=== PATIENT | female | born 1995 | race African-American/Black ===

== ENCOUNTER 2017-08-10 17:56 | Inpatient (IN) | payer MEDICAID ==
[~2017-08-10 17:56] MED LIST: BACT800T5 PO; DOXY100C PO; METR-1 PO
[2017-08-10] MEDS ORDERED: DINOPROSTONE 10 MG INSERT-LEAVE FOR 12 HOURS VAGINAL ONE (19:30)
[2017-08-10 19:37] LABS: AUTOMATED NEUTROPHIL # 6.5 TH/MM3 (1.8-7.7); BASOPHIL # 0.1 TH/MM3 (0-0.2); BASOPHIL % 0.8 % (0.0-2.0); EOSINOPHIL # 0.1 TH/MM3 (0-0.4); HEMATOCRIT 27.7 % (35.0-46.0); HEMOGLOBIN 9.6 GM/DL (11.6-15.3); LYMPH % 15.8 % (9.0-44.0); LYMPHOCYTE # 1.3 TH/MM3 (1.0-4.8); MEAN CELL VOLUME 85.5 FL (80.0-100.0); MEAN CORPUSCULAR HEMOGLOBIN 29.7 PG (27.0-34.0); MEAN CORPUSCULAR HGB CONC 34.7 % (32.0-36.0); MEAN PLATELET VOLUME 8.8 FL (7.0-11.0); MONO % 6.2 % (0.0-8.0); MONOCYTE # 0.5 TH/MM3 (0-0.9); NEUT % 76.2 % (16.0-70.0); PLATELET COUNT 232 TH/MM3 (150-450); RED BLOOD COUNT 3.24 MIL/MM3 (4.00-5.30); RED CELL DISTRIBUTION WIDTH 13.2 % (11.6-17.2); WHITE BLOOD COUNT 8.5 TH/MM3 (4.0-11.0)
[2017-08-10 20:04] LABS: BACTERIA, URINE RARE /hpf; BILIRUBIN, URINE NEG (NEG); BLOOD, URINE NEG (NEG); GLUCOSE,URINE NEG (NEG); KETONE, URINE NEG (NEG); MUCUS URINE FEW /lpf (OCC); NITRITE,URINE NEG (NEG); PH, URINE 6.5 (5.0-8.5); SQUAMOUS EPITHELIAL CELL URINE <1 /hpf (0-5); URINE COLOR LIGHT-YELLOW (YELLW/STRAW); URINE LEUKOCYTE ESTERASE NEG (NEG)
[2017-08-10] MEDS: LACTATED RINGER'S 1000 ML INJ 1,000 ML IV SCH (20:04)
[2017-08-11] VITALS (67 sets, daily range): BP systolic 89–129; BP diastolic 45–88; PULSE 66–134; RESP 18–20; TEMP 98–98.7; O2SAT 100
[2017-08-11] MEDS ORDERED: NS 500 ML BOLUS IV PRN (01:45)
[2017-08-11] MEDS ORDERED: CITRIC ACID-SODIUM CITRATE LIQ 30 ML UDC PO SCH (01:45)
[2017-08-11] MEDS ORDERED: LIDOCAINE HCL 1% 50 ML VIAL INFIL PRN (01:45)
[2017-08-11] MEDS ORDERED: OXYTOCIN 30 UNITS 500ML PREMIX IV ONE (01:45)
[2017-08-11] MEDS ORDERED: LACTATED RINGER'S 1000 ML BOLUS IV PRN (01:45)
[2017-08-11] MEDS ORDERED: NS 1000 ML IV PRN (01:45)
[2017-08-11] MEDS ORDERED: MINERAL OIL 10 ML VIAL TOPICAL PRN (01:45)
[2017-08-11] MEDS ORDERED: LIDOCAINE HCL 1% 50 ML VIAL I-DERMAL PRN (01:45)
[2017-08-11] MEDS ORDERED: ONDANSETRON HCL 4 MG/2 ML VIAL IV PUSH PRN (01:45)
--- NOTE | 2017-08-11 02:53 | HHI.HP ---
HPI Chief Complaint iugr iol Travel History International Travel<30 Days: No Contact w/Intl Traveler<30Days: No Known Affected Area: No History of Present Illness HPI 21 yo G1 with iup at 39w2d by first trimester u/s c/w lmp, being admitted for iol for iugr. c/b hyperemesis and poor weight gain. Sono at 35 weeks noted EFW 21 %ile. Sono yesterday noted EFW 7% with AC and HC under 1 percent (5 lb 13oz). Normal dopplers, ANEESH 7; G3 placenta. She reports good FM, neg ctx, vb, lof. Weeks Gestation: 39 Para: 0 : 1 History Past Medical History Medical History: Denies Significant Hx Past Surgical History Surgical History: No Previous Surgery Family History Family History: Negative Social History Alcohol Use: No Tobacco Use: No Substance Abuse: No Allergies-Medications (Allergen,Severity, Reaction): Coded Allergies: No Known Allergies (Verified Allergy, Unknown, 08/11/17) Home Meds Discontinued Scripts Sulfamethoxazole-Trimethoprim (Bactrim DS) 800-160 Mg Tab, 1 TAB PO BID for Infection, #6 TAB 0 Refills Prov:Kam Arvizu MD 04/18/16 Metronidazole (Flagyl) 500 Mg Tab, 500 MG PO BID for Infection for 10 Days, TAB 0 Refills Prov:Kam Arvizu MD 04/18/16 Doxycycline Hyclate (Doxycycline Hyclate) 100 Mg Cap, 100 MG PO BID for Infection for 10 Days, CAP 0 Refills Prov:Kam Arvizu MD 04/18/16 Review of Systems General / Constitutional: No: Fever, Weight Gain, Chills, Other Eyes: No: Diploplia, Blurred Vision, Visual changes, Pain, Photophobia HENT: No: Headaches, Vertigo, Lightheadedness Cardiovascular: No: Irregular Rhythm, Chest Pain or Discomfort, Palpitations, Tachycardia, Syncope, Varicosities, Edema, Cyanosis Respiratory: No: Cough, Short of Breath, Other Gastrointestinal: No: Nausea, Vomiting, Diarrhea Genitourinary: No: Decreased Urinary Output, Oliguria Musculoskeletal: No: Limited ROM, Weakness, Cramping, Edema, Pain Skin: No Rash, No Itching, No Dryness, No Lumps, No Change in Pigmentation, No Change in Nails, No Alopecia, No Lesions Neurologic: No: Weakness, Dizziness, Syncope, Focal Abnormalities, Coordination Problem, Headache, Slurred Speech, Seizures Psychiatric: No: Depression, Suicidal Ideations, Homicidal Ideation Endocrine: No: Heat Intolerance, Cold Intolerance, Polydipsia, Polyuria, Other Physical Exam Narrative GENERAL: Well-nourished, well-developed patient. SKIN: Warm and dry. HEAD: Normocephalic and atraumatic. EYES: No scleral icterus. No injection or drainage. ENT: No nasal drainage noted. Mucous membranes pink. Airway patent. NECK: Supple, trachea midline. No JVD. CARDIOVASCULAR: Regular rate and rhythm without murmurs, gallops, or rubs. RESPIRATORY: Breath sounds equal bilaterally. No accessory muscle use. ABDOMEN/GI: Abdomen soft, non-tender, bowel sounds present, no rebound, no guarding Gravid to 36 weeks size GENITOURINARY: External Genitalia: intact and normal in appearance Cervix:cl/th/hi Presentation ceph Membranes: [intact Uterine Contractions: [-] FHT's: Category: I Baseline: [140] Reactive: [-] Variability: mod] Decels: [-] EXTREMITIES: No cyanosis or edema. BACK: Nontender without obvious deformity. No CVA tenderness. NEUROLOGICAL: Awake and alert. Motor and sensory grossly within normal limits. Five out of 5 muscle strength in all muscle groups. Normal speech. Caprini VTE Risk Assessment Caprini VTE Risk Assessment: No/Low Risk (score <= 1) Caprini Risk Assessment Model Point Value = 1 Point Value = 2 Point Value = 3 Point Value = 5 Age 41-60 Minor surgery BMI > 25 kg/m2 Swollen legs Varicose veins or History of unexplained or recurrent spontaneous Oral contraceptives or hormone replacement Sepsis (< 1 month) Serious lung disease, including pneumonia (< 1 month) Abnormal pulmonary function Acute myocardial infarction Congestive heart failure (< 1 month) History of inflammatory bowel disease Medical patient at bed rest Age 61-74 Arthroscopic surgery Major open surgery (> 45 min) Laparoscopic surgery (> 45 min) Malignancy Confined to bed (> 72 hours) Immobilizing plaster cast Central venous access Age >= 75 History of VTE Family history of VTE Factor V Leiden Prothrombin [id number] Lupus anticoagulant Anticardiolipin antibodies Elevated serum homocysteine Heparin-induced thrombocytopenia Other congenital or acquired thrombophilia Stroke (< 1 month) Elective arthroplasty Hip, pelvis, or leg fracture Acute spinal cord injury (< 1 month) Prophylaxis Regimen Total Risk Factor Score Risk Level Prophylaxis Regimen 0-1 Low Early ambulation 2 Moderate Order ONE of the following: *Sequential Compression Device (SCD) *Heparin 5000 units SQ BID 3-4 Higher Order ONE of the following medications: *Heparin 5000 units SQ TID *Enoxaparin/Lovenox 40 mg SQ daily (WT < 150 kg, CrCl > 30 mL/min) *Enoxaparin/Lovenox 30 mg SQ daily (WT < 150 kg, CrCl > 10-29 mL/min) *Enoxaparin/Lovenox 30 mg SQ BID (WT < 150 kg, CrCl > 30 mL/min) AND/OR *Sequential Compression Device (SCD) 5 or more Highest Order ONE of the following medications: *Heparin 5000 units SQ TID (Preferred with Epidurals) *Enoxaparin/Lovenox 40 mg SQ daily (WT < 150 kg, CrCl > 30 mL/min) *Enoxaparin/Lovenox 30 mg SQ daily (WT < 150 kg, CrCl > 10-29 mL/min) *Enoxaparin/Lovenox 30 mg SQ BID (WT < 150 kg, CrCl > 30 mL/min) AND *Sequential Compression Device (SCD) Data Data Vital Signs Reviewed: Yes Orders Orders Dinoprostone Vag Insert (Cervidil Vag In (08/10/17 19:30) Lactated Ringer's 1000 Ml Inj (Lr 1000 M (08/10/17 19:30) Complete Blood Count With Diff (08/10/17 19:16) Hold Clot (08/10/17 19:16) Abo/Rh Blood Type (08/10/17 19:16) Urinalysis - C+S If Indicated (08/10/17 19:16) Specimen To Be Collected PRN (08/10/17 19:16) Ob/Psych Drug Screen, Urine (08/10/17 19:16) Lactated Ringer's 1000 Ml Inj (Lr 1000 M (08/11/17 01:45) Sodium Chlorid 0.9% 500 Ml Inj (Ns 500 M (08/11/17 01:45) Lactated Ringer's 1000 Ml Inj (Lr 1000 M (08/11/17 01:45) Sodium Chlor 0.9% 1000 Ml Inj (Ns 1000 M (08/11/17 01:45) Lidocaine 1% Inj (50 Ml) (Xylocaine 1% I (08/11/17 01:45) Citric Acid-Sodium Citrate Liq (Bicitra (08/11/17 01:45) Ondansetron Inj (Zofran Inj) (08/11/17 01:45) Fentanyl Inj (Fentanyl Inj) (08/11/17 01:45) Fentanyl Inj (Fentanyl Inj) (08/11/17 01:45) Oxytocin 30 Units-500ml Premix (Pitocin (08/11/17 01:45) Lidocaine 1% Inj (50 Ml) (Xylocaine 1% I (08/11/17 01:45) Light Mineral Oil (Muri-Lube Oil) (08/11/17 01:45) Group B Strep: Negative Labs Laboratory Tests Test 08/10/17 18:35 White Blood Count 8.5 Red Blood Count 3.24 Hemoglobin 9.6 Hematocrit 27.7 Mean Corpuscular Volume 85.5 Mean Corpuscular Hemoglobin 29.7 Mean Corpuscular Hemoglobin Concent 34.7 Red Cell Distribution Width 13.2 Platelet Count 232 Mean Platelet Volume 8.8 Neutrophils (%) (Auto) 76.2 Lymphocytes (%) (Auto) 15.8 Monocytes (%) (Auto) 6.2 Eosinophils (%) (Auto) 1.0 Basophils (%) (Auto) 0.8 Neutrophils # (Auto) 6.5 Lymphocytes # (Auto) 1.3 Monocytes # (Auto) 0.5 Eosinophils # (Auto) 0.1 Basophils # (Auto) 0.1 CBC Comment DIFF FINAL Differential Comment Urine Color LIGHT-YELLOW Urine Turbidity CLEAR Urine pH 6.5 Urine Specific [place] 1.011 Urine Protein TRACE Urine Glucose (UA) NEG Urine Ketones NEG Urine Occult Blood NEG Urine Nitrite NEG Urine Bilirubin NEG Urine Urobilinogen LESS THAN 2.0 Urine Leukocyte Esterase NEG Urine WBC LESS THAN 1 Urine Squamous Epithelial Cells <1 Urine Bacteria RARE Urine Mucus FEW Microscopic Urinalysis Comment CULT NOT INDICATED Urine Opiates Screen NEG Urine Barbiturates Screen NEG Urine Amphetamines Screen NEG Urine Benzodiazepines Screen NEG Urine Cocaine Screen NEG Urine Cannabinoids Screen NEG Assessment/Plan Problem List: (1) IUGR (intrauterine growth restriction) affecting care of mother ICD Codes: O36.5990 - Maternal care for other known or suspected poor growth, unspecified trimester, not applicable or unspecified Assessment and Plan 21 yo G1 with iup at 39w2d here for iol for iugr 1) IUGR- discussed need for iol. IOL started with cervidil. Reviewed w pt and partner that some iugr babies are intolerant of labor. If that is the case, or if there is arrest of labor, she will need CD. 2) GBS negative 3) Fetus- male cephalic, EFW 7%, 5 lb 13 oz; grade 3 placenta. Claudine Tejeda MD Aug 11, 2017 02:53
[2017-08-11] MEDS: LACTATED RINGER'S 1000 ML INJ 1,000 ML IV SCH ×2 (03:30→11:30)
[2017-08-11] MEDS: LACTATED RINGER'S 1000 ML IV SCH ×2 (04:28→11:34)
[2017-08-11] MEDS ORDERED: fentaNYL 2MCG-BUPIV 0.125% INJ 100 ML ONE (08:07)
[2017-08-11] MEDS ORDERED: DO NOT ADMINISTER ANTICOAGULANTS PRN (09:00)
[2017-08-11] MEDS ORDERED: fentaNYL 2MCG-BUPIV 0.125% 100 ML EPIDURAL SCH (09:00)
[2017-08-11] MEDS ORDERED: ePHEDrine/NS 25 MG/5 ML SYRINGE IV PUSH PRN (09:00)
[2017-08-11] MEDS ORDERED: NO SYSTEM NARCOTICS PRN (09:00)
--- NOTE | 2017-08-11 14:12 | PD.OB.DELI ---
Weeks gestation: 39 Gest age assessed date: Aug 10, 2017 Pt started active labor?: No Medical induction of labor?: Yes Medical induction start date: Aug 10, 2017 Medical induction start time: 20:00 Artificial rupture of membrane: No Anesthesia: Epidural Episiotomy: None Vaginal Delivery: Normal Presentation: Occiput anterior Nuchal Cord: x1 Delayed cord clamping (45 sec): No Shoulder Dystocia: Gene maneuver done : Male Delivery date: Aug 11, 2017 Delivery time: 14:00 One Minute : 7 Five Minute : 9 Placenta: Spontaneous delivery Laceration: No lacerations Estimated blood loss: 200cc Osorio Oscar MD Aug 11, 2017 14:12
[2017-08-11] MEDS ORDERED: BENZOCAINE 20% TOPICAL SPRAY 60 ML CAN TOPICAL PRN (14:15)
[2017-08-11] MEDS ORDERED: ACETAMINOPHEN 325 MG TAB PO PRN (14:15)
[2017-08-11] MEDS ORDERED: SODIUM CHLORIDE 0.9% FLUSH 10 ML FLUSH IV FLUSH PRN (14:15)
[2017-08-11] MEDS ORDERED: DOCUSATE SODIUM 50 MG/SENNA 8.6 MG TAB PO PRN (14:15)
[2017-08-11] MEDS ORDERED: ONDANSETRON ODT 4 MG TAB PO PRN (14:15)
[2017-08-11] MEDS ORDERED: WITCH HAZEL 50%/GLYCERIN 12.5% 40 PAD JAR TOPICAL PRN (14:15)
[2017-08-11] MEDS ORDERED: ALUMINUM/MAGNESIUM/SIMETH 30 ML CUP PO PRN (14:15)
[2017-08-11] MEDS ORDERED: OXYTOCIN 30 UNITS-500ML PREMIX 500 ML IV SCH (14:15)
[2017-08-11] MEDS ORDERED: OXYTOCIN 10 UNIT/ML AMP XX PRN (14:15)
[2017-08-11] MEDS: IBUPROFEN 800 MG TAB PO PRN ×2 (15:52→23:06)
[2017-08-11] MEDS ORDERED: MEASLES, MUMPS, RUBELLA VACCINE 0.5 ML VIAL SQ ONE (16:00)
[2017-08-11] MEDS ORDERED: DIPHTH/TETANUS/ACEL PERTUSSIS (BOOSTER) 0.5 ML VIAL/PFS IM ONE (16:00)
[2017-08-11] MEDS: SODIUM CHLORIDE 0.9% FLUSH 10 ML FLUSH IV FLUSH SCH (21:00)
[2017-08-11] MEDS ORDERED: ZOLPIDEM TARTRATE 5 MG TAB PO PRN (21:00)
[2017-08-12 09:00] VITALS: BP 95/53; PULSE 83; RESP 18; TEMP 98.1
[2017-08-12] MEDS: IBUPROFEN 800 MG TAB PO PRN ×2 (10:09→18:52)
--- NOTE | 2017-08-12 11:25 | HHI.OB ---
Subjective Remarks doing well would like circumcision nursing no sutures or episiotomy Objective Vitals/I&O Vital Signs Date Time Temp Pulse Resp B/P (MAP) Pulse Ox O2 Delivery O2 Flow Rate FiO2 08/12/17 09:00 98.1 83 18 95/53 (67) 08/11/17 20:01 98.1 80 18 93/47 (62) 08/11/17 17:00 66 104/56 (72) 08/11/17 17:00 98.1 18 08/11/17 14:45 85 95/65 (75) 08/11/17 14:40 98.0 08/11/17 14:30 107 109/70 (83) 08/11/17 14:15 90 117/64 (81) 08/11/17 14:10 18 08/11/17 14:01 108/88 (95) 08/11/17 14:00 93 08/11/17 13:55 98 08/11/17 13:50 91 08/11/17 13:45 134 129/75 (93) 08/11/17 13:45 102 08/11/17 13:40 126 08/11/17 13:35 102 08/11/17 13:30 106 115/69 (84) 08/11/17 13:30 104 08/11/17 13:26 99 118/76 (90) 08/11/17 13:25 105 08/11/17 13:20 120 08/11/17 13:15 83 102/51 (68) 08/11/17 13:15 75 08/11/17 13:10 76 08/11/17 13:05 76 08/11/17 13:00 75 105/47 (66) 08/11/17 13:00 76 08/11/17 12:10 85 08/11/17 12:05 78 08/11/17 12:00 80 99/52 (68) 08/11/17 12:00 77 08/11/17 11:55 81 08/11/17 11:50 76 08/11/17 11:45 84 08/11/17 11:45 89/45 (60) 08/11/17 11:45 81 08/11/17 11:30 98.3 92 18 102/57 (72) 08/11/17 11:30 89 08/11/17 11:30 81 08/11/17 11:25 77 08/11/17 11:25 79 Objective Remarks GENERAL: Well-nourished, well-developed patient. CARDIOVASCULAR: Regular rate and rhythm without murmurs, gallops, or rubs. RESPIRATORY: Breath sounds equal bilaterally. No accessory muscle use. ABDOMEN/GI: Abdomen soft, non-tender. Fundus: Firm, non-tender at umbilicus. GENITOURINARY: Light to moderate bleeding. EXTREMITIES: No cyanosis or edema, non-tender, without signs of DVT. Medications and IVs Current Medications Medications (Trade) Dose Ordered Sig/Ana Maria Route Start Time Stop Time Status Last Admin Lactated Ringer's 1,000 ml @ 125 mls/hr Q8H IV 08/10/17 19:30 08/10/17 20:04 Lactated Ringer's 1,000 ml @ 125 mls/hr Q8H IV 08/11/17 01:45 08/11/17 11:34 Lactated Ringer's 1,000 ml @ 3,000 mls/hr BOLUS PRN IV 08/11/17 01:45 08/11/17 08:39 Sodium Chloride 500 ml @ 1,000 mls/hr BOLUS PRN IV 08/11/17 01:45 Sodium Chloride 1,000 ml @ 100 mls/hr Q10H PRN IV 08/11/17 01:45 (Bicitra Liq) 30 ml PARQUETRY FLOOR LAYER PO 08/11/17 01:45 08/14/17 01:44 (Zofran Inj) 4 mg Q6H PRN IV PUSH 08/11/17 01:45 08/11/17 08:00 (fentaNYL INJ) 50 mcg Q1H PRN IV PUSH 08/11/17 01:45 (fentaNYL INJ) 100 mcg Q1H PRN IV PUSH 08/11/17 01:45 08/11/17 04:29 (Muri-Lube Oil) 10 ml UNSCH PRN TOPICAL 08/11/17 01:45 Fentanyl/ Bupivacaine HCl 100 ml @ 0 mls/hr TITRATE EPIDURAL 08/11/17 09:00 08/11/17 10:03 (Pitocin Inj) 20 units UNSCH X1 PRN XX 08/11/17 14:15 08/12/17 14:14 (NS Flush) 2 ml BID IV FLUSH 08/11/17 14:15 (NS Flush) 2 ml UNSCH PRN IV FLUSH 08/11/17 14:15 (Tylenol) 650 mg Q4H PRN PO 08/11/17 14:15 (Motrin) 800 mg Q8H PRN PO 08/11/17 14:15 08/12/17 10:09 (Americaine 20% Top Spr) 1 spray Q4H PRN TOPICAL 08/11/17 14:15 (Tucks Pads) 1 applic QID PRN TOPICAL 08/11/17 14:15 (Michelle-Colace) 2 tab Q12H PRN PO 08/11/17 14:15 08/12/17 10:09 (Ambien) 5 mg HS PRN PO 08/11/17 21:00 (Mag-Al Plus Susp Liq) 15 ml Q8H PRN PO 08/11/17 14:15 (Zofran Odt) 4 mg Q6H PRN PO 08/11/17 14:15 Assessment/Plan Problem List: (1) IUGR (intrauterine growth restriction) affecting care of mother ICD Codes: O36.5990 - Maternal care for other known or suspected poor growth, unspecified trimester, not applicable or unspecified Assessment and Plan 21 yo G1 with iup at 39w2d here for iol for iugr 1) IUGR- discussed need for iol. IOL started with cervidil. Reviewed w pt and partner that some iugr babies are intolerant of labor. If that is the case, or if there is arrest of labor, she will need CD. 2) GBS negative 3) Fetus- male cephalic, EFW 7%, 5 lb 13 oz; grade 3 placenta. PPD 1 Doing well with no complaints would like circumcision today or tomorrow home in am Manuela Dalton MD Aug 12, 2017 11:25
--- NOTE | 2017-08-12 12:56 | HHI.DCPOC ---
Discharge Care Plan Diagnosis: (1) Normal vaginal delivery Your Health Problems Are: Vaginal delivery Report Symptoms to Your Doctor -Temperature above 100.5 degrees -Redness, of incision or excessive or foul smelling drainage -Unusual pain or calf pain -Increased vaginal bleeding -Painful or difficulty urinating -Feelings of extreme sadness or anxiety after 2 weeks Goals to Promote Your Health * To prevent worsening of your condition and complications * To maintain your health at the optimal level Directions to Meet Your Goals Take your medications as prescribed Follow your dietary instruction Follow activity as directed Ensure plenty of rest for recovery Drink fluids for hydration Keep your appointments as scheduled Take your immunizations and boosters as scheduled If your symptoms worsen call your PCP, if no PCP go to Urgent Care Center or Emergency Room Smoking is Dangerous to Your Health. Avoid second hand smoke Call the 24-hour crisis hotline for domestic abuse at Elliott Ortiz MD Aug 12, 2017 12:56
[2017-08-12] MEDS ORDERED: IBUP-232 PO (17:40)
[2017-08-12 20:00] VITALS: BP 104/57; PULSE 83; RESP 18; TEMP 97.8
[2017-08-12] MEDS: SODIUM CHLORIDE 0.9% FLUSH 10 ML FLUSH IV FLUSH SCH (21:00)
[2017-08-13] MEDS: LACTATED RINGER'S 1000 ML IV SCH (01:45)
[2017-08-13] MEDS: LACTATED RINGER'S 1000 ML INJ 1,000 ML IV SCH (03:30)
[2017-08-13 08:00] VITALS: BP_SYST 112; BP_SYST 94; BP_DIAS 53; BP_DIAS 70; PULSE 75; PULSE 91; RESP 18; TEMP 98; TEMP 98.2
--- NOTE | 2017-08-13 08:10 | HHI.OB ---
Subjective Post Day: 2 Remarks Doing well, desires discharge home, vaginal bleeding less than menses, pain controlled. Objective Vitals/I&O Vital Signs Date Time Temp Pulse Resp B/P (MAP) Pulse Ox O2 Delivery O2 Flow Rate FiO2 08/12/17 20:00 83 18 104/57 (73) 08/12/17 20:00 97.8 08/12/17 09:00 98.1 83 18 95/53 (67) Objective Remarks GENERAL: Well-nourished, well-developed patient. CARDIOVASCULAR: Regular rate and rhythm without murmurs, gallops, or rubs. RESPIRATORY: Breath sounds equal bilaterally. No accessory muscle use. ABDOMEN/GI: Abdomen soft, non-tender. Fundus: Firm, non-tender at umbilicus. GENITOURINARY: Light to moderate bleeding. EXTREMITIES: No cyanosis or edema, non-tender, without signs of DVT. Medications and IVs Current Medications Medications (Trade) Dose Ordered Sig/Ana Maria Route Start Time Stop Time Status Last Admin Lactated Ringer's 1,000 ml @ 125 mls/hr Q8H IV 08/10/17 19:30 08/10/17 20:04 Lactated Ringer's 1,000 ml @ 125 mls/hr Q8H IV 08/11/17 01:45 08/11/17 11:34 Lactated Ringer's 1,000 ml @ 3,000 mls/hr BOLUS PRN IV 08/11/17 01:45 08/11/17 08:39 Sodium Chloride 500 ml @ 1,000 mls/hr BOLUS PRN IV 08/11/17 01:45 Sodium Chloride 1,000 ml @ 100 mls/hr Q10H PRN IV 08/11/17 01:45 (Bicitra Liq) 30 ml [employer] PO 08/11/17 01:45 08/14/17 01:44 (Zofran Inj) 4 mg Q6H PRN IV PUSH 08/11/17 01:45 08/11/17 08:00 (fentaNYL INJ) 50 mcg Q1H PRN IV PUSH 08/11/17 01:45 (fentaNYL INJ) 100 mcg Q1H PRN IV PUSH 08/11/17 01:45 08/11/17 04:29 (Muri-Lube Oil) 10 ml UNSCH PRN TOPICAL 08/11/17 01:45 Fentanyl/ Bupivacaine HCl 100 ml @ 0 mls/hr TITRATE EPIDURAL 08/11/17 09:00 08/11/17 10:03 (NS Flush) 2 ml BID IV FLUSH 08/11/17 14:15 (NS Flush) 2 ml UNSCH PRN IV FLUSH 08/11/17 14:15 (Tylenol) 650 mg Q4H PRN PO 08/11/17 14:15 (Motrin) 800 mg Q8H PRN PO 08/11/17 14:15 08/12/17 18:52 (Americaine 20% Top Spr) 1 spray Q4H PRN TOPICAL 08/11/17 14:15 (Tucks Pads) 1 applic QID PRN TOPICAL 08/11/17 14:15 (Michelle-Colace) 2 tab Q12H PRN PO 08/11/17 14:15 08/12/17 10:09 (Ambien) 5 mg HS PRN PO 08/11/17 21:00 (Mag-Al Plus Susp Liq) 15 ml Q8H PRN PO 08/11/17 14:15 (Zofran Odt) 4 mg Q6H PRN PO 08/11/17 14:15 Assessment/Plan Problem List: (1) IUGR (intrauterine growth restriction) affecting care of mother ICD Codes: O36.5990 - Maternal care for other known or suspected poor growth, unspecified trimester, not applicable or unspecified Assessment and Plan 21 yo s/p at 39w was IOL for IUGR 1. PPD #2: Meeting milestones, discharge home today, discussed expectations, precautions and follow-up. - male, s/p circ yesterday. 2. Anemia: rec Fe at home daily Elliott Ortiz MD Aug 13, 2017 08:10
[2017-08-13 09:00] VITALS: TEMP 98.2
== END 2017-08-13 14:11 | disposition home or self-care (01) | DRG 775 ==
LOC: H2EA 17:56 → H1EA 08-11 16:07
PROVIDERS: ADMIT Obstetrics & Gynecology; ATTEND Obstetrics & Gynecology
PROC: 3E0P7VZ Introduction of Hormone into Female Reproductive, Via Natural or Artificial Opening (ICD-10-PCS; 2017-08-10)
PROC: 10E0XZZ Delivery of Products of Conception, External Approach (ICD-10-PCS; principal; 2017-08-11)
PROC: 00HU33Z Insertion of Infusion Device into Spinal Canal, Percutaneous Approach (ICD-10-PCS; 2017-08-11)
PROC: 3E0R3BZ Introduction of Anesthetic Agent into Spinal Canal, Percutaneous Approach (ICD-10-PCS; 2017-08-11)
DX: O36.5930 Maternal care for other known or suspected poor fetal growth, third trimester, not applicable or unspecified (principal); D64.9 Anemia, unspecified; O69.81X0 Labor and delivery complicated by cord around neck, without compression, not applicable or unspecified; O66.0 Obstructed labor due to shoulder dystocia; O99.02 Anemia complicating childbirth; Z3A.39 39 weeks gestation of pregnancy; Z37.0 Single live birth
CPT/HCPCS: 59025; 80307; 81001; 82805; 85025; 86900; 86901; G0481; J2405; J2590; J3010; J7120